=== PATIENT | male | born 1960 | race Caucasian/White ===

== ENCOUNTER 2018-01-30 15:17 | Emergency (ER) | payer OTHER, BC ==
--- NOTE | 2018-01-30 16:08 | CR ---
Clinical history: 57-year-old male injured right forearm (fall). Interpretation: AP lateral views right forearm reveal no sign of long bone fracture, right elbow/wris t joint dislocation. No foreign bodies. (Apparent tiny fragment avulsed off the carpal navicular bone right wrist)
--- NOTE | 2018-01-30 16:13 | CR ---
Clinical history: 57-year-old male injured (fall). Right wrist pain. Interpretation: *Subtle irregular lucency carpal navicular bone radial aspect of the wrist. Point ten derness? Occult scaphoid fracture?. Note: Cortical irregularity best seen on the AP "forearm view". S uspicious. Mild soft tissue swelling. No sign of other right wrist fracture or dislocation. Metacarpals intact and distal radius/ulna normal.
--- NOTE | 2018-01-30 16:43 | EDM.PDOC ---
Scribed by Shy Smiley 01/30/18 [id number] for Rao Coyne MD ED HPI GENERAL MEDICAL PROBLEM - General Chief Complaint: Upper Extremity Injury/Pain Stated Complaint: [id number] WC NEEDS XRAY IN RT FOREARM AND WRIST Time Seen by Provider: 01/30/18 15:25 Source of Information: Reports: Patient, RN, RN Notes Reviewed History Limitations: Reports: No Limitations - History of Present Illness INITIAL COMMENTS - FREE TEXT/NARRATIVE: Patient presents with complaint that he fell this morning on his right forearm and wrist. No other injuries. Onset: Today Duration: Getting Worse Location: Reports: Upper Extremity, Right Quality: Reports: Ache Severity: Moderate Improves with: Reports: None Worsens with: Reports: None Associated Symptoms: Reports: No Other Symptoms Right Arm Pain Score (Numeric/FACES): 7 - Related Data Allergies Allergy/AdvReac Type Severity Reaction Status Date / Time No Known Allergies Allergy Verified 01/30/18 15:23 Home Meds: Home Meds . [No Known Home Meds] 01/30/18 [History] Past Medical History - Past Health History Medical/Surgical History: Denies Medical/Surgical History Social & Family History - Tobacco Use Smoking Status *Q: Current Every Day Smoker Years of Tobacco use: 12 Packs/Tins Daily: 0.1 Second Hand Smoke Exposure: Yes - Recreational Drug Use Recreational Drug Use: No Review of Systems - Review of Systems Review Of Systems: ROS reveals no pertinent complaints other than HPI. ED EXAM, GENERAL - Physical Exam Exam: See Below Exam Limited By: No Limitations General Appearance: Alert, WD/WN, No Apparent Distress Head: Atraumatic, Normocephalic Neck: Full Range of Motion Respiratory/Chest: No Respiratory Distress Peripheral Pulses: 3+: Radial (L), Radial (R) Extremities: Normal Capillary Refill, Joint Swelling (right wrist), Arm Pain ( right ulnar forearm with mild swelling and distgal contusion.), Limited Range of Motion (right wrist), Other (focal point tenderness overlying right scaphoid. ) Neurological: Alert, Oriented, No Motor/Sensory Deficits Psychiatric: Normal Affect, Normal Mood Skin Exam: Warm, Dry, Intact ED TRAUMA EXTREMITY PROCEDURES - Splinting Right Upper Extremity Splint Site: right wrist Pre-Procedure NV Status: Normal Post-Procedure NV Status: Normal Splint Material: Fiberglass Splint Design: Volar Applied & Form Fitted By: Nurse Provider Post-Splint Application NV Check: NV Status Normal, Good Position Complications: No Course - Vital Signs Last Recorded V/S: Last Vital Signs Temp 36.6 C 01/30/18 15:19 Pulse 88 01/30/18 15:19 Resp 18 01/30/18 15:19 BP 141/84 H 01/30/18 15:19 Pulse Ox 98 01/30/18 15:19 - Orders/Labs/Meds Orders: Active Orders 24 hr Category Date Time Status Splinting [RC] ASDIRECTED Care 01/30/18 16:32 Active - Radiology Interpretation Free Text/Narrative:: Right forearm x-ray:No sign of long bone fracture, right elbow/wrist joint dislocation. (apparent tiny fragment avulsed off the carpal navicular bone right wrist). See rad report. X-ray right wrist: Subtle irregular lucency carpal naviclar bone radial aspect of the wrist. Point tenderness?Occult scaphoid frcture? Note:Cortical irregularity best seen on the AP forearm view suspicious. See rad report. Departure - Departure Time of Disposition: 16:31 Disposition: Home, Self-Care 01 Condition: Good Clinical Impression: Work related injury Scaphoid fracture, wrist, closed Qualifiers: Encounter type: initial encounter Scaphoid bone location: unspecified portion of scaphoid Fracture alignment: nondisplaced Laterality: right Qualified Code(s) : S62.001A - Unspecified fracture of navicular [scaphoid] bone of right wrist, initial encounter for closed fracture Contusion of right upper extremity Qualifiers: Encounter type: initial encounter Qualified Code(s): S40.021A - Contusion of right upper arm, initial encounter - Discharge Information Instructions: Contusion, [id number], Scaphoid Fracture Forms: ED Department Discharge Additional Instructions: RX: Tylenol #3. *DO NOT DRIVE while under the influence of this medication. Rest, ice and elevated right wrist. Wear the splint at all times. Follow up with [facility]. Call [phone] to make appointment. - My Orders Last 24 Hours: My Active Orders 01/30/18 16:32 Splinting [RC] ASDIRECTED - Assessment/Plan Last 24 Hours: My Active Orders 01/30/18 16:32 Splinting [RC] ASDIRECTED I have read and agree with the documentation that has been completed regarding this visit. By signing this record, I attest that the documentation was completed in my physical presence and is an accurate record of the encounter.
== END 2018-01-30 16:49 | disposition home or self-care (01) ==
LOC: DL.ED 15:17
DX: S62.001A Unspecified fracture of navicular [scaphoid] bone of right wrist, initial encounter for closed fracture (principal); S40.021A Contusion of right upper arm, initial encounter; F17.210 Nicotine dependence, cigarettes, uncomplicated; Y99.0 Civilian activity done for income or pay; W19.XXXA Unspecified fall, initial encounter; W18.30XA Fall on same level, unspecified, initial encounter
CPT/HCPCS: 29125; 73090-RT; 73110-RT; 99283